=== PATIENT | male | born 1995 | race Caucasian/White ===

== ENCOUNTER 2021-01-12 19:23 | Emergency (ER) | payer OTHER ==
[2021-01-12 22:14] LABS: BASOPHIL 0.5 % (0-2); EOSINOPHIL 1.6 % (0-5); HCT 41.9 % (42.0-52.0); HGB 14.3 g/dl (13.2-18.0); LYMPHOCYTE 18.6 % (15-48); MCH 29.7 pg (25.0-31.0); MCHC 34.1 g/dL (32.0-36.0); MCV 87.1 fL (78.0-100.0); MONOCYTE 6.9 % (0-12); MPV 9.8 fL (6.0-9.5); NEUTROPHIL 72.1 % (41-80); NRBC 0; PLT 253 K/uL (150-400); RBC 4.81 M/uL (4.70-6.00); RDW 11.4 % (11.5-14.0); WBC 10.8 K/uL (4.0-10.5)
[2021-01-12 22:38] LABS: ALBUMIN 3.8 g/dL (3.4-5.0); BILIRUBIN - TOTAL 0.2 mg/dL (0.2-1.0); BUN/CREAT RATIO (CALC) 24.4 RATIO; CREATININE 0.41 mg/dL (0.67-1.17); MAGNESIUM 2.1 mg/dL (1.8-2.4); POTASSIUM 3.9 mmol/L (3.5-5.1); TOTAL PROTEIN 7.8 g/dL (6.4-8.2)
== END 2021-01-13 04:45 | disposition home or self-care (01) ==
LOC: FER 19:23
PROVIDERS: Emergency Medicine
DX: R45.1 Restlessness and agitation (principal); Z88.0 Allergy status to penicillin; Z88.8 Allergy status to other drugs, medicaments and biological substances; Z91.010 Allergy to peanuts
CPT/HCPCS: 36415; 70450; 72040; 72072; 80053; 83735; 84443; 85025; 96372; J3486